=== PATIENT | male | born 2000 | race Two or more races ===

== ENCOUNTER 2021-12-10 05:17 | Emergency (ER) | payer OTHER ==
[~2021-12-10] VITALS: Ht 177.8 cm; Wt 70.0 kg
--- NOTE | 2021-12-10 05:22 | PHYS DOC ---
Past History Past Medical History: No Pertinent History (BRADLY SOLANO MD) Past Surgical History: No Surgical History (BRADLY SOLANO MD) Smoking: Non-smoker Alcohol Use: None Drug Use: None (BRADLY SOLANO MD) General Adult HPI: HPI: ".. Both my legs hurt so bad ... I can't sleep.. 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 No trauma. No history of fever or chills. Recent travel from [place] to [facility]. Patient on leave to visit family here in [facility]. No previous episodes of DVT or coagulopathy with him or family members. No history of rheumatoid type arthritis. No history of recent changes in meds. Has been drinking some energy drinks. No history of of hypokalemia. (BRADLY SOLANO MD) Review of Systems: Review of Systems: Constitutional: Denies fever or chills Eyes: Denies change in visual acuity HENT: Denies nasal congestion or sore throat Respiratory: Denies cough or shortness of breath Cardiovascular: Denies chest pain or edema GI: Denies abdominal pain, nausea, vomiting, bloody stools or diarrhea : Denies dysuria Musculoskeletal: Denies back pain or joint pain. Except complaints of bilateral stocking distribution pain in lower legs. Integument: Denies rash Neurologic: Denies headache, focal weakness or sensory changes Endocrine: Denies polyuria or polydipsia Lymphatic: Denies swollen glands Psychiatric: Denies depression or anxiety (BRADLY SOLANO MD) Family History: Family History: Noncontributory (BRADLY SOLANO MD) Current Medications: Current Meds: See nursing for home meds (BRADLY SOLANO MD) Allergies: Allergies: Allergies Coded Allergies Type Severity Reaction Last Updated Verified No Known Drug Allergies 08/12/14 No (BRADLY SOLANO MD) Physical Exam: PE: Constitutional: Well developed, well nourished, no acute distress, non-toxic appearance. [] HENT: Normocephalic, atraumatic, bilateral external ears normal, oropharynx mo ist, no oral exudates, nose normal. [] Eyes: PERRLA, EOMI, conjunctiva normal, no discharge. [] Neck: Normal range of motion, no tenderness, supple, no stridor. [] Cardiovascular:Heart rate regular rhythm, no murmur [] Lungs & Thorax: Bilateral breath sounds clear to auscultation [] Abdomen: Bowel sounds normal, soft, no tenderness, no masses, no pulsatile masses. [] Skin: Warm, dry, no erythema, no rash. [] Back: No tenderness, no CVA tenderness. [] Extremities: Lower bilateral limb tenderness, no cyanosis, no clubbing, ROM intact, no edema. [] Dorsal pedis and posterior pedis pulses intact. Can stand on toes. No difficulty in walking. No cording appreciated Neurologic: Alert and oriented X 3, normal motor function, normal sensory function, no focal deficits noted. [] Psychologic: Affect anxious, judgement normal, mood normal. [] (BRADLY SOLANO MD) EKG: EKG: [] (BRADLY SOLANO MD) Radiology/Procedures: Radiology/Procedures: [][place] [address] IMAGING REPORT Signed PATIENT: ADRIENNE LEIGH ACCOUNT: [id number] : 2000 LOCATION: ER AGE: 21 SEX: M EXAM STATUS: REG ER ORD. PHYSICIAN: KRISTOFER ARCOS DO REASON: leg cramps/pain, r/o dvt PROCEDURE: VENOUS LOWER EXT BILATERAL EXAM: Bilateral lower extremity venous Doppler sonogram. HISTORY: Pain and swelling. TECHNIQUE: Jefferson scale and color Doppler sonographic evaluation of the bilateral lower extremity veins with spectral waveform analysis was performed. FINDINGS: There is normal color flow, normal compressibility and there are normal spectral waveforms in the common femoral, superficial femoral, popliteal, posterior tibial and greater saphenous veins. IMPRESSION: No Doppler evidence of lower extremity deep venous thrombosis. Electronically signed by: Amna Tobin MD (12/10/2021 9:15 AM) [facility] DICTATED AND SIGNED BY: AMNA TOBIN MD DATE: 12/10/21 0915 CC: NON,STAFF; KRISTOFER ARCOS DO ~MTH0 0 (BRADLY SOLANO MD) Heart Score: C/O Chest Pain: N/A Risk Factors: Risk Factors: DM, Current or recent (<one month) smoker, HTN, HLP, family history of CAD, obesity. Risk Scores: Score 0 - 3: 2.5% MACE over next 6 weeks - Discharge Home Score 4 - 6: 20.3% MACE over next 6 weeks - Admit for Clinical Observation Score 7 - 10: 72.7% MACE over next 6 weeks - Early Invasive Strategies (BRADLY SOLANO MD) C/O Chest Pain: No (KRISTOFER ARCOS DO) Course & Med Decision Making: Course & Med Decision Making Pertinent Labs and Imaging studies reviewed. (See chart for details) Patient endorsed to Dr.A Guy Arcos at shift change- Labs and possible US pending at shift change. Dr. Arcos will make disposition. Impression: 1. Bilateral lower leg pain- Stocking distribution. [] (BRADLY SOLANO MD) Course & Med Decision Making I received signout at shift change from Dr. Solano. 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 States he had drank "a significant amount of alcohol" yesterday and also felt dizziness and weak, "thought I should get checked out." Came home and took a nap but woke up around 6/7pm with his calves hurting him. Also reports right sided low back pain. States he's currently "on leave" for two weeks-flew here from [place] 12/02. States he's been wrestling with his brother since he got home. No recent vomiting, diarrhea or flu-like illness. No PSH/takes no prescribed medications. Denies any marijuana, cocaine or IVDU. No associated saddle anesthesia, radiculopathy, hematuria, urinary or bowel retention or incontinence, rash/skin color changes or dysuria. Constitutional: Well developed, well nourished, no acute distress, non-toxic appearance, hops out of ed recliner without and distress, thin/healthy appearing HENT: Normocephalic, atraumatic, Eyes: EOMI, conjunctiva normal, no discharge. Neck: Normal range of motion, supple, Cardiovascular: S1/2 present, regular rhythm Lungs & Thorax: Speaking in full sentences, bilateral equal chest rise, no tachypnea or increased work of breathing Skin: Warm, dry, no erythema, no rash. [] Back: No midline tenderness or step offs, +L1-5 right paraspinal ttp, Extremities: no cyanosis, no unilateral leg swelling, equal PT pulses, Neurologic: Alert and oriented X 3, no focal deficits noted. [] Psychologic: Affect normal, judgement normal, mood normal. [] Concern for posterior leg cramps in the setting of recent alcohol intoxication and dehydration -urinalysis was taken after NS bolus. No evidence of rhabdomyolysis or renal injury. Reports no midline neck pain, radiculopathy, saddle anesthesia, incontinence weakness or sensory deficits. On reevaluation after analgesia, patient states his symptoms have improved. D-dimer was elevated. Lower extremity duplex negative for DVT. Patient with no associated chest pain, shortness of breath or hemoptysis. Will discharge home with strict ED return precautions were given for lateral leg swelling, chest pain, shortness of breath or neurologic deficits. Encouraged urgent outpatient follow-up with PMD in 2 to 3 days for reevaluation. Life-threatening processes were considered but are low suspicion at this time, given history, physical exam and ED workup. Pt was educated on all prescription medications and adverse effects. All patient's questions were answered and pt was stable at time of discharge. Life/limb-threatening differential includes but is not limited to, trauma (fracture, dislocation, laceration, compartment syndrome, tendon or ligament injury), neurovascular injury or deficitcva/tia, infection (osteomyelitis, abscess, cellulitis, septic arthritis, necrotizing fasciitis), deep vein thrombosis, renal/cardiac/liver disease, medication adverse effect, lymphedema/anasarca, vascular insufficiency or malignancy, I have spoken with the patient and/or caregivers. I explained the patient's condition, diagnoses and treatment plan based on the information available to me at this time. I have answered the patient and/or caregiver's questions and addressed any concerns. The patient and/or caregivers have a good understanding of patient's diagnosis, condition and treatment plan as can be expected at this point. Vital signs have been stable. Patient's condition is stable and appropriate for discharge from the emergency department. Patient will pursue further outpatient evaluation with primary care physician or other designated or consulting physician as outlined in the discharge instructions. The patient and/or caregivers are agreeable to this plan of care and follow-up instructions have been explained in detail. The patient and/or caregivers have received these instructions in written form and have expressed an understanding of the discharge instructions. The patient and/or caregivers are aware that any significant change of condition or worsening of symptoms should prompt immediate return to this or the closest emergency department or call to [phone]. ([facility]) Dragon Disclaimer: Dragon Disclaimer: This electronic medical record was generated, in whole or in part, using a voice recognition dictation system. (BRADLY SOLANO MD) Departure Departure: Impression: Primary Impression: Bilateral calf pain Additional Impression: Elevated d-dimer Disposition: HOME / SELF CARE / HOMELESS Condition: STABLE Referrals: ANA MELO (PCP) Follow up with your pcp in 1-2 days or [facility] [phone] [facility]Dr. Dillon [phone] Patient Instructions: Dehydration, Adult, Leg Cramps Additional Instructions: EMERGENCY DEPARTMENT GENERAL DISCHARGE INSTRUCTIONS Thank you for coming to [facility] (ED) today and trusting us with you care. We trust that you had a positivie experience in our Emergency Department. If you wish to speak to the department management, you may call the director at [phone]. YOUR FOLLOW UP INSTRUCTIONS ARE FOLLOWS: 1. Do you have a private Doctor? If you do not have a private doctor, please ask for a resource list of physicians or clinics that may be able to assist you with follow up care. 2. The Emergency Physician has interpreted your x-rays. The X-Ray specialist will also review them. If there is a change in the findings, you will be notified in 48 hours when at all possible. 3. A lab test or culture has been done, your results will be reviewed and you will be notified if you need a change in treatment. ADDITIONAL INSTRUCTIONS AND INFORMATION: 1. Your care today has been supervised by a physician who is specially trained in emergency care. Many problems require more than one evaluation for a complete diagnosis and treatment. We recommend that you schedule your follow up appointment as recommended to ensure complete treatment of you illness or injury. If you are unable to obtain follow up care and continue to have a problem, or if your condition worsens, we recommend that you return to the ED. 2. We are not able to safely determine your condition over the phone nor are we able to give sound medical advice over the phone. For these safety reasons, if you call for medical advice we will ask you to come to the ED for further evaluation. 3. If you have any questions regarding these discharge instructions please call the ED at [phone]. SAFETY INFORMATION: In the interest of safety, wellness, and injury prevention; we encourage you to wear your sealbelt, if you smoke; quite smoking, and we encourage family to use a protective helmet for bicycling and other sporting events that present an increased risk for head injury. IF YOUR SYMPTOMS WORSEN OR NEW SYMPTOMS DEVELOP, OR YOU HAVE CONCERNS ABOUT YOUR CONDITION; OR IF YOUR CONDITION WORSENS WHILE YOU ARE WAITING FOR YOUR FOLLOW UP APPOINTMENT; EITHER CONTACT YOUR PRIMARY CARE DOCTOR, THE PHYSICIAN WHOSE NAME AND NUMBER YOU WERE GIVEN, OR RETURN TO THE ED IMMEDIATELY. BRADLY SOLANO MD Dec 10, 2021 05:22 KRISTOFER ARCOS DO Dec 10, 2021 06:45
[2021-12-10] MEDS ORDERED: KETOROLAC 60 MG/2 ML VIAL. IM ONE (06:30)
[2021-12-10 06:39] LABS: BASO # 0.1 x10^3/uL (0.0-0.2); BASO % 2 % (0-3); EOS % 1 % (0-3); HEMATOCRIT 39.6 % (39.0-53.0); HEMOGLOBIN 13.4 g/dL (13.0-17.5); LYMPH # 2.5 x10^3/uL (1.0-4.8); LYMPH % 38 % (24-48); MEAN CORPUSCULAR HEMOGLOBIN 29 pg (25-35); MEAN CORPUSCULAR HGB CONC 34 g/dL (31-37); MEAN CORPUSCULAR VOLUME 86 fL (79-100); MONO # 0.8 x10^3/uL (0.0-1.1); MONO % 12 % (0-9); NEUT # 3.3 x10^3uL (1.8-7.7); NEUT % 49 % (31-73); PLATELET COUNT 201 x10^3/uL (140-400); RED BLOOD COUNT 4.59 x10^6/uL (4.30-5.70); RED CELL DISTRIBUTION WIDTH 13.2 % (11.5-14.5); WHITE BLOOD COUNT 6.7 x10^3/uL (4.0-11.0)
[2021-12-10 06:40] LABS: CALCIUM 8.8 mg/dL (8.5-10.1); GFR 95.3; POTASSIUM 3.8 mmol/L (3.5-5.1)
[2021-12-10 06:46] LABS: ALBUMIN 3.5 g/dL (3.4-5.0); DIRECT BILIRUBIN 0.1 mg/dL (0.0-0.2); TOTAL BILIRUBIN 0.4 mg/dL (0.2-1.0); TOTAL PROTEIN 7.4 g/dL (6.4-8.2)
[2021-12-10] MEDS ORDERED: IV RINGERS SOLUTION,LACTATED 1,000 ML IV ONE (07:00)
[2021-12-10] MEDS ORDERED: diazePAM 5 MG TABLET. PO ONE (07:30)
[2021-12-10 08:10] LABS: BARBITURATES NEG (NEG); BENZODIAZEPINES NEG (NEG); CANNABINOIDS NEG (NEG); COCAINE NEG (NEG); METHADONE NEG (NEG); OPIATES NEG (NEG); PHENCYCLIDINE NEG (NEG)
[2021-12-10 08:11] LABS: AMPHETAMINE/METHAMPHETAMINE NEG (NEG)
[2021-12-10 08:25] LABS: BACTERIA,URINE 0 /HPF (0-FEW); CLARITY,URINE CLEAR; COLOR,URINE YELLOW; GLUCOSE,URINE NEG (NEG); NITRITE,URINE NEG (NEG); SQUAMOUS EPITHELIAL CELL,UR FEW /LPF; UROBILINOGEN,URINE 0.2 mg/dL (0.2 mg/dL)
--- NOTE | 2021-12-10 09:18 | RAD ---
EXAM: Bilateral lower extremity venous Doppler sonogram. HISTORY: Pain and swelling. TECHNIQUE: Jefferson scale and color Doppler sonographic evaluation of the bilateral lower extremity veins with spectral waveform analysis was performed. FINDINGS: There is normal color flow, normal compressibility and there are normal spectral waveforms in the common femoral, superficial femoral, popliteal, posterior tibial and greater saphenous veins. IMPRESSION: No Doppler evidence of lower extremity deep venous thrombosis. Electronically signed by: Amna Asencio MD (12/10/2021 9:15 AM) [facility]
[2021-12-10 09:30] VITALS: BP 115/62
== END 2021-12-10 09:30 | disposition home or self-care (01) ==
LOC: ER 05:17
DX: M79.662 Pain in left lower leg (principal); M79.661 Pain in right lower leg; R79.1 Abnormal coagulation profile
CPT/HCPCS: 36415; 80048; 80076; 80307; 81001; 82550; 85025; 85379; 85610; 85730; 93970; 96360; 96372; 99284; J1885; J7120

== ENCOUNTER 2021-12-11 02:18 | Emergency (ER) | payer OTHER ==
[~2021-12-11] VITALS: Ht 177.8 cm; Wt 70.0 kg
--- NOTE | 2021-12-11 02:24 | PHYS DOC ---
Past History Past Medical History: No Pertinent History Past Surgical History: No Surgical History Smoking: Non-smoker Alcohol Use: Heavy Drug Use: None General Adult HPI: HPI: ".. I was here this morning or yesterday morning.. " .. " My legs and now my back is hurting.. I ve been taking Ibuprofen. and tylenol with no relief of the pain.. 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 Patient states he now has lower back pain. Patient's bilateral lower leg pain has a stocking distribution. Patient denies any fever or chills. Patient recent travel from [place] to [facility]. Patient is on leave visiting family here in [facility]. No previous episodes of DVT or coagulopathy with him or family members. No history of rheumatoid arthritis. No history of trauma. No history of hypokalemia. He is up-to-date with vaccinations. Did have a work-up earlier this morning on 12/10 which consist of a negative ultrasound for DVT (did have findings of elevated D-dimer.). Pt. requesting narcotic pain meds for pain relief. Review of Systems: Review of Systems: Constitutional: Denies fever or chills Eyes: Denies change in visual acuity HENT: Denies nasal congestion or sore throat Respiratory: Denies cough or shortness of breath Cardiovascular: Denies chest pain or edema GI: Denies abdominal pain, nausea, vomiting, bloody stools or diarrhea : Denies dysuria Musculoskeletal: Complaints of bilateral lower leg pain Integument: Denies rash Neurologic: Denies headache, focal weakness or sensory changes Endocrine: Denies polyuria or polydipsia Lymphatic: Denies swollen glands Psychiatric: Denies depression or anxiety Family History: Family History: Noncontributory to presentation Current Medications: Current Meds: See nursing for home meds Allergies: Allergies: Allergies Coded Allergies Type Severity Reaction Last Updated Verified No Known Drug Allergies 12/10/21 No Physical Exam: PE: Constitutional: Well developed, well nourished, no acute distress, non-toxic appearance. [] HENT: Normocephalic, atraumatic, bilateral external ears normal, oropharynx moist, no oral exudates, nose normal. [] Eyes: PERRLA, EOMI, conjunctiva normal, no discharge. [] Neck: Normal range of motion, no tenderness, supple, no stridor. [] Cardiovascular:Heart rate regular rhythm, no murmur [] Lungs & Thorax: Bilateral breath sounds clear to auscultation [] Abdomen: Bowel sounds normal, soft, no tenderness, no masses, no pulsatile masses. [] Skin: Warm, dry, no erythema, no rash. [] Back: New finding of lower lumbar tenderness, no CVA tenderness. [] Extremities: Complains of bilateral lower leg tenderness, no cyanosis, no clubbing, ROM intact, no edema. No cording appreciated Neurologic: Alert and oriented X 3, normal motor function, normal sensory function, no focal deficits noted. [] Psychologic: Affect anxious, judgement normal, mood normal. [] EKG: EKG: [] Radiology/Procedures: Radiology/Procedures: [][place] [address] IMAGING REPORT Signed PATIENT: ADRIENNE LEIGH ACCOUNT: [id number] : 2000 LOCATION: ER AGE: 21 SEX: M EXAM STATUS: REG ER ORD. PHYSICIAN: BRADLY PEREZ MD REASON: Lumbar /Sacral pain-bilateral leg pain PROCEDURE: CT LUMBAR SPINE WO CONTRAST CT lumbar spine without contrast HISTORY: Lumbosacral pain, bilateral leg pain. PQRS statement: CT scans at this facility use dose reduction including either automated exposure control, iterative reconstructions, and /or weight based radiation dosing via mA and kV modification when appropriate to reduce radiation dose to as low as reasonably achievable. FINDINGS: There is mild patient motion artifact at the lower thoracic spine with misregistration of the bones and soft tissues. Lumbar vertebral body height and alignment is intact. No fracture. No spondylolysis defect. No bone lesion. Paraspinal tissues are normal. There is posterior disc height loss at L5-S1 with an associated mild disc bulge/herniation. Very mild disc bulges at L3-4 and L4- 5 are also present. Disc disease would be further characterized with MR imaging. IMPRESSION: No acute osseous injury of the lumbar spine. There are CT imaging changes of lower lumbar disc disease. See above. Electronically signed by: Lachelle Rodriguez MD (12/11/2021 3:27 AM) [facility] DI[facility]ATED AND SIGNED BY: LACHELLE RODRIGUEZ MD DATE: 12/11/21 0322 CC: BRADLY PEREZ MD; PCP,UNKNOWN ~MTH0 0 Heart Score: C/O Chest Pain: N/A Risk Factors: Risk Factors: DM, Current or recent (<one month) smoker, HTN, HLP, family history of CAD, obesity. Risk Scores: Score 0 - 3: 2.5% MACE over next 6 weeks - Discharge Home Score 4 - 6: 20.3% MACE over next 6 weeks - Admit for Clinical Observation Score 7 - 10: 72.7% MACE over next 6 weeks - Early Invasive Strategies Course & Med Decision Making: Course & Med Decision Making Pertinent Labs and Imaging studies reviewed. (See chart for details) Pt. follow up with primary. Have them review ED work ups. Take tylenol and ibuprofen for discomfort. Take a daily baby aspirin. Follow up pending rheumatoid and CRISTIANA. Return if any concerns. Impression: 1. Bilateral Lower Leg Pain- Stocking distribution 2. Lumbar Sacral Pain 3. Hx. Elevated D-dimer 4. Possible Narcotic Seeking Behaviors [] Dragon Disclaimer: Dragon Disclaimer: This electronic medical record was generated, in whole or in part, using a voice recognition dictation system. Departure Departure: Referrals: PCP,UNKNOWN (PCP) Dragon Disclaimer This chart was dictated in whole or in part using Voice Recognition software in a busy, high-work load, and often noisy Emergency Department environment. It may contain unintended and wholly unrecognized errors or omissions. Dragon Disclaimer This chart was dictated in whole or in part using Voice Recognition software in a busy, high-work load, and often noisy Emergency Department environment. It may contain unintended and wholly unrecognized errors or omissions. BRADLY PEREZ MD Dec 11, 2021 02:24
[2021-12-11 02:30] VITALS: BP 141/72
--- NOTE | 2021-12-11 03:29 | RAD ---
CT lumbar spine without contrast HISTORY: Lumbosacral pain, bilateral leg pain. PQRS statement: CT scans at this facility use dose reduction including either automated exposure cont rol, iterative reconstructions, and /or weight based radiation dosing via mA and kV modification when appropriate to reduce radiation dose to as low as reasonably achievable. FINDINGS: There is mild patient motion artifact at the lower thoracic spine with misregistration of t he bones and soft tissues. Lumbar vertebral body height and alignment is intact. No fracture. No spon dylolysis defect. No bone lesion. Paraspinal tissues are normal. There is posterior disc height loss at L5-S1 with an associated mild disc bulge/herniation. Very mild disc bulges at L3-4 and L4-5 are al so present. Disc disease would be further characterized with MR imaging. IMPRESSION: No acute osseous injury of the lumbar spine. There are CT imaging changes of lower lumbar disc disease. See above. Electronically signed by: Giuseppe Rodriguez MD (12/11/2021 3:27 AM) [facility]
[2021-12-11] MEDS ORDERED: IV RINGERS SOLUTION,LACTATED 1,000 ML IV SCH (03:30)
[2021-12-11] MEDS ORDERED: methylPREDNISolone ACETATE 40 MG/ML VIAL. IM ONE (03:30)
[2021-12-11 03:36] LABS: BASO # 0.1 x10^3/uL (0.0-0.2); BASO % 2 % (0-3); EOS # 0.1 x10^3/uL (0.0-0.7); EOS % 2 % (0-3); HEMATOCRIT 39.5 % (39.0-53.0); HEMOGLOBIN 13.3 g/dL (13.0-17.5); LYMPH # 2.2 x10^3/uL (1.0-4.8); LYMPH % 40 % (24-48); MEAN CORPUSCULAR HEMOGLOBIN 29 pg (25-35); MEAN CORPUSCULAR HGB CONC 34 g/dL (31-37); MEAN CORPUSCULAR VOLUME 86 fL (79-100); MONO # 0.7 x10^3/uL (0.0-1.1); MONO % 14 % (0-9); NEUT # 2.3 x10^3uL (1.8-7.7); NEUT % 42 % (31-73); PLATELET COUNT 191 x10^3/uL (140-400); RED BLOOD COUNT 4.58 x10^6/uL (4.30-5.70); RED CELL DISTRIBUTION WIDTH 13.2 % (11.5-14.5); WHITE BLOOD COUNT 5.4 x10^3/uL (4.0-11.0)
[2021-12-11 03:44] LABS: CALCIUM 8.7 mg/dL (8.5-10.1); CREATININE 0.9 mg/dL (0.7-1.3); GFR 107.6; POTASSIUM 3.7 mmol/L (3.5-5.1)
[2021-12-11 03:49] LABS: C REACTIVE PROTEIN 8.4 mg/L (0-3.3)
[2021-12-11 03:53] LABS: INFLUENZA A PATIENT NEGATIVE (NEGATIVE); INFLUENZA B PATIENT NEGATIVE (NEGATIVE)
[2021-12-11 04:48] LABS: AMPHETAMINE/METHAMPHETAMINE NEG (NEG); BARBITURATES NEG (NEG); BENZODIAZEPINES NEG (NEG); CANNABINOIDS NEG (NEG); COCAINE NEG (NEG); METHADONE NEG (NEG); OPIATES NEG (NEG); PHENCYCLIDINE NEG (NEG)
[2021-12-11 04:54] LABS: BACTERIA,URINE 0 /HPF (0-FEW); CLARITY,URINE CLEAR; COLOR,URINE YELLOW; GLUCOSE,URINE NEG (NEG); NITRITE,URINE NEG (NEG); RBC,URINE 0 /HPF (0-2); UROBILINOGEN,URINE 0.2 mg/dL (0.2 mg/dL); WBC,URINE 0 /HPF (0-4)
[2021-12-12 19:11] LABS: ANA INTERP Negative (.)
== END 2021-12-11 04:37 | disposition home or self-care (01) ==
LOC: ER 02:18
DX: M79.662 Pain in left lower leg (principal); M79.661 Pain in right lower leg; M54.59 Other low back pain; M53.3 Sacrococcygeal disorders, not elsewhere classified; Z20.822 Contact with and (suspected) exposure to COVID-19
CPT/HCPCS: 36415; 72131; 80048; 80307; 81001; 82550; 84443; 85025; 85379; 85610; 85730; 86038; 86140; 86431; 87428; 96360; 96372; 99284; J1030; J7120